=== PATIENT | male | born 1960 | race Caucasian/White ===

== ENCOUNTER 2017-02-26 21:07 | Emergency (ER) | payer BC ==
[~2017-02-26] VITALS: Ht 172.7 cm; Wt 103.4 kg
[2017-02-26 21:22] VITALS: BP_SYST 147
--- NOTE | 2017-02-26 22:03 | NUR ---
Patient to ER bed 3 to gown for evaluation. Side rails up. Report given to GONZALO CLAUDIO.
--- NOTE | 2017-02-26 22:05 | NUR ---
Pt. to ER [id number] from home for head injury states he lost balnace getting out of his car, slipped and fell on the back of his head, minor but multiple abrasions to the site, no active bleeding noted at the site, speech clear, follows commands, states no pain
--- NOTE | 2017-02-26 22:10 | NUR ---
dr. balderas at bedside examining the pt.
--- NOTE | 2017-02-26 22:12 | NUR ---
pt out to CT ambulatory
--- NOTE | 2017-02-26 22:16 | NUR ---
pt. back from CT ambulatory
[2017-02-26] MEDS ORDERED: BACITRACIN 1 GM OINT TP ONE (23:31)
--- NOTE | 2017-02-26 23:52 | NUR ---
Wound care done, back of head, using providone iodine, bacitracin ointment applied to scalp abrasions
[2017-02-26 23:55] VITALS: BP_SYST 135
--- NOTE | 2017-02-26 23:55 | NUR ---
Patient given written and verbal discharge instructions and verbalizes understanding. ER MD discussed with patient the results and treatment provided.Patient in stable condition. ID arm band removed. No Rx given. Patient educated on pain management and to follow up with PMD. Pain Scale 2/10 Opportunity for questions provided and answered.
== END 2017-02-26 23:55 | disposition home or self-care (01) ==
LOC: SED 21:07
DX: S01.01XA Laceration without foreign body of scalp, initial encounter (principal); W19.XXXA Unspecified fall, initial encounter; Y93.89 Activity, other specified; Y99.8 Other external cause status; Y92.89 Other specified places as the place of occurrence of the external cause
CPT/HCPCS: 70450-TC; 99284